=== PATIENT | male | born 1950 | race Caucasian/White ===

== ENCOUNTER 2019-06-23 17:09 | Inpatient (IN) | payer BC, OTHER ==
[~2019-06-23] VITALS: Ht 182.9 cm; Wt 101.4 kg
[2019-06-23] MEDS ORDERED: DEXTROSE 5% IV ONE (17:15)
[2019-06-23] MEDS ORDERED: EPINEPHRINE IV ONE (17:15)
--- NOTE | 2019-06-23 17:24 | NUR ---
business systems lead: MD Asif has updated pt's family on pt status.
[2019-06-23] MEDS ORDERED: NOREPINEPHRINE 1 MG/ML, 4ML ONE (18:00)
[2019-06-23] MEDS ORDERED: SODIUM CHLORIDE 0.9%, 250ML ONE (18:00)
[2019-06-23] MEDS ORDERED: EPINEPHRINE 4 MG in SODIUM CHLORIDE 0.9% 246 ML IV PRN (18:00)
[2019-06-23] MEDS ORDERED: PROPOFOL 100 ML IV ONE (18:08)
--- NOTE | 2019-06-23 18:09 | NUR ---
Gabbi to use central line per dr Asif
[2019-06-23] MEDS ORDERED: MIDAZOLAM 1 MG/ML, 2ML IVPush STA (18:17)
[2019-06-23] MEDS ORDERED: SODIUM BICARB 8.4%, 50ML SYRINGE ONE (18:20)
[2019-06-23] MEDS ORDERED: ATROPINE SYRINGE 0.1 MG/ML, 10ML ONE (18:20)
[2019-06-23] MEDS ORDERED: CODE BLUE RESPONSE XX ONE (18:20)
[2019-06-23] MEDS ORDERED: EPINEPHRINE SYRINGE 0.1 MG/ML, 10ML ONE (18:20)
[2019-06-23 18:23] LABS: ALANINE AMINOTRANSFERASE 79 U/L (12-78); ALBUMIN 3.3 g/dL (3.4-5.0); ANION GAP 19 mmol/L (5-15); CALCIUM 8.5 mg/dL (8.5-10.1); CHLORIDE 105 mmol/L (98-107); CREATININE 1.96 mg/dL (0.7-1.3)
--- NOTE | 2019-06-23 18:25 | NUR ---
DR OWEN IN ROOM
[2019-06-23 18:27] LABS: ALKALINE PHOSPHATASE 60 U/L (45-117); BILIRUBIN,TOTAL 0.7 mg/dL (0.2-1.0); TOTAL PROTEIN 6.4 g/dL (6.4-8.2); TROPONIN I < 0.015 ng/mL (0.000-0.045)
[2019-06-23 18:30] LABS: INTERNATIONAL NORMALIZED RATIO 1.33 (0.93-1.1); MEAN CORPUSCULAR HEMOGLOBIN 33.2 pg (27.5-34.5); MEAN CORPUSCULAR HGB CONC 31.4 g/dL (33.2-36.2); MEAN CORPUSCULAR VOLUME 105.7 fL (81-97); MEAN PLATELET VOLUME 10.3 fL (7.4-10.4); PLATELET COUNT 203 x10^3/uL (130-400); PROTHROMBIN TIME 13.8 Seconds (9.6-11.5); RED BLOOD COUNT 4.12 x10^6/uL (4.38-5.82); RED CELL DISTRIBUTION WIDTH 15.5 % (9.4-14.8)
[2019-06-23] MEDS: PROPOFOL 100 ML IV PRN ×2 (18:30→21:38)
[2019-06-23 18:32] LABS: MD YES
[2019-06-23 18:37] LABS: BAND#(MANUAL) 0.74 x10^3/uL; BANDS%(MANUAL) 7 % (0-7); EOS#(MANUAL) 0.21 x10^3/uL (0.0-0.4); EOS% (MANUAL) 2 % (1-7); LYMPH#(MANUAL) 3.36 x10^3/uL (1-3.4); LYMPHS% (MANUAL) 32 % (22-44); METAMYELOCYTES# (MANUAL) 0.11 x10^3/uL (0-0); METAMYELOCYTES% (MANUAL) 1 % (0-1); MONOS#(MANUAL) 0.63 x10^3/uL (0.3-2.7); MONOS% (MANUAL) 6 % (2-9); MYELOCYTES# (MANUAL) 0.11 x10^3/uL (0-0); MYELOCYTES% (MANUAL) 1 % (0-0); SEG#(MANUAL) 5.36 x10^3/uL (1.8-6.8); SEGS% (MANUAL) 51 % (42-75)
[2019-06-23] MEDS ORDERED: NOREPINEPHRINE 4 MG in SODIUM CHLORIDE 0.9% 246 ML IV PRN ×3 (18:37→23:30)
[2019-06-23] MEDS ORDERED: SODIUM PHOSPHATE 20 MMOL in SODIUM CHLORIDE 0.9% 250 ML IVPB PRN ×2 (18:37→20:50)
[2019-06-23] MEDS ORDERED: FENTANYL PF 2,500 MCG in SODIUM CHLORIDE 0.9% 200 ML IV PRN (18:37)
[2019-06-23 18:38] LABS: ANISOCYTOSIS 1+
[2019-06-23 18:39] LABS: POLYCHROMASIA 1+
[2019-06-23 18:40] LABS: PMNS WITH VACUOLES 1+; TOXIC GRAN 1+
[2019-06-23] MEDS ORDERED: MIDAZOLAM 1 MG/ML, 2ML IV STA (18:40)
[2019-06-23 18:41] LABS: <PLATELET ESTIMATE> ADEQUATE; LARGE PLATELETS 1+
[2019-06-23] MEDS ORDERED: VECURONIUM 10 MG IVPush PRN ×2 (19:00→21:00)
[2019-06-23] MEDS: KSCALE TO 4.0 IV SCH ×2 (19:00→21:52)
[2019-06-23] MEDS ORDERED: MAGNESIUM SULFATE 1 GM in SODIUM CHLORIDE 0.9% 50 ML IVPB PRN ×2 (19:00→21:00)
[2019-06-23] MEDS ORDERED: PHARMACY MAY ADJ FOR RENAL FX MC PRN (19:00)
[2019-06-23] MEDS ORDERED: ARTIFICIAL TEARS OINT 3.5 GM EACHEYE SCH ×2 (19:00→21:00)
[2019-06-23] MEDS ORDERED: CALCIUM CHLORIDE 13.6 MEQ in DEXTROSE 5% 100 ML IVPB PRN ×2 (19:00→21:00)
[2019-06-23] MEDS ORDERED: VECURONIUM 10 MG ONE (19:03)
--- NOTE | 2019-06-23 19:14 | NUR ---
DR FERRERA AT BEDSIDE. DOING OG.
--- NOTE | 2019-06-23 19:20 | NUR ---
Sissy sam in EDM - 06/23/[address] CHI ZARAGOZA OF OG. [employer] ADMINISTRATION SUPERVISOR, ANNA BROWN OF OG.
--- NOTE | 2019-06-23 19:21 | NUR ---
DR FERRERA AND CCU JOSELINE CASTILLO AWARE OF OG
--- NOTE | 2019-06-23 19:21 | NUR ---
FAMILY AT BEDSIDE TALKING WITH DR FERRERA
[2019-06-23 19:29] VITALS: BP 152/99
[2019-06-23] MEDS ORDERED: ATROPINE SYRINGE 0.1 MG/ML, 10ML IVPush ONE (19:30)
[2019-06-23] MEDS ORDERED: VECURONIUM 10 MG IVPush ONE (19:30)
--- NOTE | 2019-06-23 19:30 | NUR ---
BEDSIDE REPORT DONE WITH JOSELINE CASTILLO FROM CCU
[2019-06-23 19:43] LABS: HEMOGLOBIN A1C 5.6 % (4.2-6.3)
[2019-06-23] MEDS ORDERED: SODIUM BICARBONATE 8.4% 150 MEQ in DEXTROSE 5% 1,000 ML IV SCH (20:00)
[2019-06-23] MEDS: SODIUM CHLORIDE 0.9% 1,000 ML IV SCH ×2 (20:02→21:31)
--- NOTE | 2019-06-23 20:10 | NUR ---
LATE ENTRY: PT MANJINDER CARBAJAL FROM HOME. WITH WAS WITH PATIENT IN THEIR GARAGE. PT SAT DOWN ON STEPS AND THEM BECAME UNRESPONSIVE. CALLED EMS AND STARTED CPR. EMS GAVE 5 ROUNDS OF EPI. EMS REPORTS THEY HAS PULSES BACK BUT LOST THEM ON THE WAY TO THE HOSPITAL PT ARRIVED WITH CPR IN PROGRESS.
[2019-06-23] MEDS ORDERED: PROPOFOL 100 ML IV PRN (20:50)
[2019-06-23] MEDS ORDERED: FENTANYL PF 250 MCG in SODIUM CHLORIDE 0.9% 245 ML IV PRN (20:50)
[2019-06-23] MEDS ORDERED: BUSPIRONE 10 MG TABLET NG SCH (21:00)
[2019-06-23] MEDS ORDERED: KSCALE TO 4.0 IV SCH (21:00)
[2019-06-23 21:30] LABS: ALANINE AMINOTRANSFERASE 173 U/L (12-78); ALBUMIN 3.6 g/dL (3.4-5.0); ANION GAP 12 mmol/L (5-15); CALCIUM 8.1 mg/dL (8.5-10.1); CHLORIDE 108 mmol/L (98-107); CREATININE 2.17 mg/dL (0.7-1.3)
[2019-06-23] MEDS: BUSPIRONE 10 MG TABLET NG SCH (21:31)
[2019-06-23 21:32] LABS: ALKALINE PHOSPHATASE 86 U/L (45-117); BILIRUBIN,TOTAL 0.9 mg/dL (0.2-1.0); TOTAL PROTEIN 7.3 g/dL (6.4-8.2)
[2019-06-23] MEDS: FAMOTIDINE 20 MG/2 ML IVPush SCH (21:33)
[2019-06-23 21:50] LABS: TROPONIN I 0.245 ng/mL (0.000-0.045)
[2019-06-23] MEDS ORDERED: POTASSIUM CHLORIDE PMX 100 ML IV ONE (22:00)
[2019-06-23] MEDS ORDERED: CALCIUM CHLORIDE 13.6 MEQ in SODIUM CHLORIDE 0.9% 100 ML IV ONE (22:00)
[2019-06-23] MEDS: REGULAR INSULIN 62.5 UNITS in SODIUM CHLORIDE 0.9% 249.375 ML IV PRN (22:04)
[2019-06-23 23:48] LABS: MICROSCOPIC INDICATED
[2019-06-23 23:58] LABS: CULTURE INDICATED? NO
[2019-06-24] MEDS: KSCALE TO 4.0 IV SCH ×6 (00:58→22:00)
[2019-06-24] MEDS: PROPOFOL 100 ML IV PRN ×5 (01:37→22:01)
[2019-06-24] MEDS ORDERED: POTASSIUM CHLORIDE PMX 100 ML IV ONE ×5 (02:00→23:30)
[2019-06-24] MEDS: ARTIFICIAL TEARS OINT 3.5 GM EACHEYE SCH ×3 (03:06→19:00)
[2019-06-24] MEDS ORDERED: VECURONIUM 10 MG IVPush ONE ×2 (03:30→23:30)
[2019-06-24] MEDS: BUSPIRONE 10 MG TABLET NG SCH ×3 (05:18→21:38)
[2019-06-24 05:40] LABS: CHLORIDE 113 mmol/L (98-107)
[2019-06-24 05:44] LABS: MEAN CORPUSCULAR HEMOGLOBIN 32.6 pg (27.5-34.5); MEAN CORPUSCULAR HGB CONC 32.2 g/dL (33.2-36.2); MEAN CORPUSCULAR VOLUME 101.2 fL (81-97); MEAN PLATELET VOLUME 9.2 fL (7.4-10.4); PLATELET COUNT 219 x10^3/uL (130-400); RED BLOOD COUNT 4.45 x10^6/uL (4.38-5.82); RED CELL DISTRIBUTION WIDTH 15.1 % (9.4-14.8)
[2019-06-24 05:51] LABS: ALANINE AMINOTRANSFERASE 147 U/L (12-78); ALBUMIN 3.3 g/dL (3.4-5.0); ALKALINE PHOSPHATASE 66 U/L (45-117); BILIRUBIN,TOTAL 0.8 mg/dL (0.2-1.0); CALCIUM 8.6 mg/dL (8.5-10.1); CREATININE 1.94 mg/dL (0.7-1.3); TOTAL PROTEIN 6.7 g/dL (6.4-8.2); TROPONIN I 0.439 ng/mL (0.000-0.045)
[2019-06-24 06:05] LABS: MD YES
[2019-06-24 06:07] LABS: ANISOCYTOSIS 1+; BAND#(MANUAL) 2.82 x10^3/uL; BANDS%(MANUAL) 13 % (0-7); LYMPH#(MANUAL) 1.09 x10^3/uL (1-3.4); LYMPHS% (MANUAL) 5 % (22-44); MONOS#(MANUAL) 0.65 x10^3/uL (0.3-2.7); MONOS% (MANUAL) 3 % (2-9); SEG#(MANUAL) 17.14 x10^3/uL (1.8-6.8); SEGS% (MANUAL) 79 % (42-75)
[2019-06-24 06:08] LABS: <PLATELET ESTIMATE> ADEQUATE; <PLT MORPHOLOGY> NORMAL PLT MORPH
[2019-06-24 06:14] LABS: ANION GAP 9 mmol/L (5-15)
[2019-06-24] MEDS ORDERED: ALBUMIN HUMAN 25% 200 ML IV ONE (08:30)
[2019-06-24] MEDS ORDERED: D5%-0.45% NACL 1,000 ML IV SCH (08:30)
[2019-06-24] MEDS: FAMOTIDINE 20 MG/2 ML IVPush SCH ×2 (09:43→21:37)
[2019-06-24] MEDS: PIPERACILLIN/TAZO/PMX 3.375GM 50 ML IV SCH ×3 (10:58→22:34)
[2019-06-24] MEDS ORDERED: SODIUM BICARB 8.4%, 50ML SYRINGE ONE (12:43)
[2019-06-24] MEDS ORDERED: SODIUM BICARB 8.4%, 50ML SYRINGE IVPush ONE (13:00)
[2019-06-24] MEDS: SODIUM BICARBONATE 8.4% 150 MEQ in DEXTROSE 5% 1,000 ML IV SCH (13:39)
[2019-06-24] MEDS ORDERED: FUROSEMIDE 20 MG/2 ML IV ONE (14:00)
[2019-06-24] MEDS: REGULAR INSULIN 62.5 UNITS in SODIUM CHLORIDE 0.9% 249.375 ML IV PRN ×2 (14:05→23:28)
[2019-06-24] MEDS: NOREPINEPHRINE 4 MG in SODIUM CHLORIDE 0.9% 246 ML IV PRN (20:32)
[2019-06-24] MEDS ORDERED: SODIUM BICARBONATE 8.4% 150 MEQ in DEXTROSE 5% 1,000 ML IV SCH (21:38)
[2019-06-25] MEDS: SODIUM BICARBONATE 8.4% 150 MEQ in DEXTROSE 5% 1,000 ML IV SCH (01:03)
[2019-06-25] MEDS: PROPOFOL 100 ML IV PRN ×3 (01:31→11:15)
[2019-06-25] MEDS: KSCALE TO 4.0 IV SCH ×6 (02:00→22:00)
[2019-06-25] MEDS: ARTIFICIAL TEARS OINT 3.5 GM EACHEYE SCH ×3 (03:00→19:00)
[2019-06-25] MEDS ORDERED: POTASSIUM CHLORIDE PMX 100 ML IV ONE ×2 (03:30→07:00)
[2019-06-25] MEDS: PIPERACILLIN/TAZO/PMX 3.375GM 50 ML IV SCH ×4 (04:36→23:06)
[2019-06-25] MEDS: BUSPIRONE 10 MG TABLET NG SCH (05:47)
[2019-06-25 06:04] LABS: ANION GAP 12 mmol/L (5-15); CALCIUM 7.8 mg/dL (8.5-10.1); CHLORIDE 108 mmol/L (98-107); CREATININE 1.76 mg/dL (0.7-1.3)
[2019-06-25 06:06] LABS: MEAN CORPUSCULAR HEMOGLOBIN 32.8 pg (27.5-34.5); MEAN CORPUSCULAR HGB CONC 32.6 g/dL (33.2-36.2); MEAN CORPUSCULAR VOLUME 100.5 fL (81-97); MEAN PLATELET VOLUME 9.1 fL (7.4-10.4); PLATELET COUNT 192 x10^3/uL (130-400); RED BLOOD COUNT 3.85 x10^6/uL (4.38-5.82); RED CELL DISTRIBUTION WIDTH 14.6 % (9.4-14.8)
[2019-06-25 06:22] LABS: MD YES
[2019-06-25 06:23] LABS: ANISOCYTOSIS 1+; BAND#(MANUAL) 1.58 x10^3/uL; BANDS%(MANUAL) 9 % (0-7); LYMPH#(MANUAL) 0.53 x10^3/uL (1-3.4); LYMPHS% (MANUAL) 3 % (22-44); METAMYELOCYTES# (MANUAL) 0.18 x10^3/uL (0-0); METAMYELOCYTES% (MANUAL) 1 % (0-1); MONOS#(MANUAL) 0.88 x10^3/uL (0.3-2.7); MONOS% (MANUAL) 5 % (2-9); SEG#(MANUAL) 14.43 x10^3/uL (1.8-6.8); SEGS% (MANUAL) 82 % (42-75)
[2019-06-25 06:24] LABS: <PLATELET ESTIMATE> ADEQUATE; <PLT MORPHOLOGY> NORMAL PLT MORPH; PMNS WITH VACUOLES 1+
[2019-06-25 06:25] LABS: POLYCHROMASIA 1+
[2019-06-25] MEDS: NOREPINEPHRINE 4 MG in SODIUM CHLORIDE 0.9% 246 ML IV PRN (07:22)
[2019-06-25] MEDS ORDERED: DEXTROSE 50%, 50ML SYRINGE IVPush STA (10:07)
[2019-06-25] MEDS: POTASSIUM CHLORIDE 10% 40 MEQ/30 ML UDC PO SCH ×3 (10:10→21:28)
[2019-06-25] MEDS: FAMOTIDINE 20 MG/2 ML IVPush SCH ×2 (10:10→21:28)
[2019-06-25] MEDS ORDERED: DEXTROSE 50%, 50ML SYRINGE IVPush ONE (10:30)
[2019-06-25] MEDS: INSULIN LISPRO 100 UNITS/ML, PEN SQ-INSULIN SCH ×3 (12:00→21:00)
[2019-06-25] MEDS ORDERED: ACETAMINOPHEN 325 MG TABLET ONE (15:18)
[2019-06-25] MEDS: ACETAMINOPHEN 325 MG TABLET PO PRN (15:20)
[2019-06-25] MEDS ORDERED: MAGNESIUM SULFATE 1 GM in SODIUM CHLORIDE 0.9% 50 ML IV ONE (15:30)
[2019-06-25] MEDS ORDERED: FENTANYL PF 100 MCG/2ML IVPush PRN (16:30)
[2019-06-26] MEDS: KSCALE TO 4.0 IV SCH ×2 (02:00→06:00)
[2019-06-26] MEDS: ARTIFICIAL TEARS OINT 3.5 GM EACHEYE SCH ×3 (03:00→17:07)
[2019-06-26] MEDS: PIPERACILLIN/TAZO/PMX 3.375GM 50 ML IV SCH ×4 (04:54→22:39)
[2019-06-26] MEDS: PROPOFOL 100 ML IV PRN (04:55)
[2019-06-26 05:09] LABS: MEAN CORPUSCULAR HEMOGLOBIN 32.4 pg (27.5-34.5); MEAN CORPUSCULAR HGB CONC 32.9 g/dL (33.2-36.2); MEAN CORPUSCULAR VOLUME 98.6 fL (81-97); MEAN PLATELET VOLUME 9.4 fL (7.4-10.4); PLATELET COUNT 166 x10^3/uL (130-400); RED CELL DISTRIBUTION WIDTH 15.2 % (9.4-14.8)
[2019-06-26 05:15] LABS: ALBUMIN 2.7 g/dL (3.4-5.0); ANION GAP 6 mmol/L (5-15); CALCIUM 7.5 mg/dL (8.5-10.1); CHLORIDE 108 mmol/L (98-107)
[2019-06-26 05:19] LABS: ALANINE AMINOTRANSFERASE 78 U/L (12-78); ALKALINE PHOSPHATASE 45 U/L (45-117); BILIRUBIN,TOTAL 0.7 mg/dL (0.2-1.0); TOTAL PROTEIN 5.7 g/dL (6.4-8.2)
[2019-06-26 05:59] LABS: BASOPHILS % (AUTO) 0 % (0-1); EOSINOPHILS # (AUTO) 0.02 x10^3/uL (0-0.4); EOSINOPHILS % (AUTO) 0 % (1-7); LYMPHOCYTES % (AUTO) 5 % (22-44); MD SCAN; MONOCYTES # (AUTO) 0.63 x10^3/uL (0.2-0.8); MONOCYTES % (AUTO) 5 % (2-9); NEUTROPHILS # (AUTO) 11.37 x10^3/uL (1.8-6.8); NEUTROPHILS % (AUTO) 90 % (42-75)
[2019-06-26] MEDS: INSULIN LISPRO 100 UNITS/ML, PEN SQ-INSULIN SCH ×4 (06:45→20:45)
[2019-06-26] MEDS ORDERED: NOREPINEPHRINE 4 MG in SODIUM CHLORIDE 0.9% 246 ML IV PRN (07:00)
[2019-06-26] MEDS ORDERED: hydrALAzine 20 MG/ML, 1ML IV PRN (09:00)
[2019-06-26] MEDS: FAMOTIDINE 20 MG/2 ML IVPush SCH ×2 (09:22→20:45)
--- NOTE | 2019-06-26 11:04 | NUR ---
TF GOAL: w/ propofol: PROMOTE @ 70 ml/hr off propofol: 80ml/hr
[2019-06-27] MEDS: ACETAMINOPHEN 325 MG TABLET PO PRN ×2 (02:59→14:05)
[2019-06-27] MEDS: ARTIFICIAL TEARS OINT 3.5 GM EACHEYE SCH ×2 (03:00→11:00)
[2019-06-27] MEDS: PIPERACILLIN/TAZO/PMX 3.375GM 50 ML IV SCH ×3 (04:41→16:30)
[2019-06-27 04:44] LABS: MEAN CORPUSCULAR HEMOGLOBIN 32.3 pg (27.5-34.5); MEAN CORPUSCULAR HGB CONC 32.9 g/dL (33.2-36.2); MEAN CORPUSCULAR VOLUME 98.2 fL (81-97); MEAN PLATELET VOLUME 9.2 fL (7.4-10.4); PLATELET COUNT 150 x10^3/uL (130-400); RED CELL DISTRIBUTION WIDTH 14.5 % (9.4-14.8)
[2019-06-27 04:50] LABS: ALANINE AMINOTRANSFERASE 56 U/L (12-78); ALBUMIN 2.8 g/dL (3.4-5.0); ANION GAP 8 mmol/L (5-15); CALCIUM 8.2 mg/dL (8.5-10.1); CHLORIDE 110 mmol/L (98-107); CREATININE 1.89 mg/dL (0.7-1.3)
[2019-06-27 04:52] LABS: ALKALINE PHOSPHATASE 47 U/L (45-117); BILIRUBIN,TOTAL 1.5 mg/dL (0.2-1.0); TOTAL PROTEIN 6.3 g/dL (6.4-8.2)
[2019-06-27 05:53] LABS: BASOPHILS # (AUTO) 0.01 x10^3/uL (0-0.1); BASOPHILS % (AUTO) 0 % (0-1); EOSINOPHILS # (AUTO) 0.02 x10^3/uL (0-0.4); EOSINOPHILS % (AUTO) 0 % (1-7); LYMPHOCYTES # (AUTO) 0.72 x10^3/uL (1-3.4); LYMPHOCYTES % (AUTO) 6 % (22-44); MD SCAN; MONOCYTES # (AUTO) 0.75 x10^3/uL (0.2-0.8); MONOCYTES % (AUTO) 6 % (2-9); NEUTROPHILS % (AUTO) 88 % (42-75)
[2019-06-27] MEDS: INSULIN LISPRO 100 UNITS/ML, PEN SQ-INSULIN SCH ×3 (06:04→16:00)
[2019-06-27] MEDS: PROPOFOL 100 ML IV PRN (08:40)
[2019-06-27] MEDS: FAMOTIDINE 20 MG/2 ML IVPush SCH (09:00)
[2019-06-27] MEDS ORDERED: GADOTERATE 10 MMOL/20 ML SYR ONE (09:33)
[2019-06-27] MEDS ORDERED: LORazepam 2 MG/ML, 1ML IV PRN (17:30)
[2019-06-27] MEDS ORDERED: ATROPINE OPHTH SOLN 1%, 2ML PO PRN (17:30)
[2019-06-27] MEDS ORDERED: morphine SULFATE 10 MG/ML, 1ML IV ONE (17:30)
[2019-06-27] MEDS ORDERED: LORazepam 2 MG/ML, 1ML IV ONE (17:30)
[2019-06-27] MEDS ORDERED: MORPHINE SULFATE 4 MG/ML, 1ML IV PRN (17:30)
[2019-06-28] MEDS ORDERED: FAMOTIDINE 20 MG/2 ML IVPush SCH (09:00)
== END 2019-06-27 22:29 | disposition expired | DRG 207 ==
LOC: ED 18:13 → EDIP 18:14 → ED 18:44 → CCU 19:42
PROVIDERS: ADMIT Family Medicine; ATTEND Family Medicine
PROC: 5A1955Z Respiratory Ventilation, Greater than 96 Consecutive Hours (ICD-10-PCS; principal; 2019-06-23)
PROC: 0T9B70Z Drainage of Bladder with Drainage Device, Via Natural or Artificial Opening (ICD-10-PCS; 2019-06-23)
PROC: 0BH17EZ Insertion of Endotracheal Airway into Trachea, Via Natural or Artificial Opening (ICD-10-PCS; 2019-06-23)
PROC: 02HV33Z Insertion of Infusion Device into Superior Vena Cava, Percutaneous Approach (ICD-10-PCS; 2019-06-23)
PROC: 5A12012 Performance of Cardiac Output, Single, Manual (ICD-10-PCS; 2019-06-23)
DX: J96.01 Acute respiratory failure with hypoxia (principal); D68.69 Other thrombophilia; E87.2 Acidosis; G93.1 Anoxic brain damage, not elsewhere classified; N17.9 Acute kidney failure, unspecified; Z99.11 Dependence on respirator [ventilator] status; I48.20 Chronic atrial fibrillation, unspecified; R57.0 Cardiogenic shock; E78.5 Hyperlipidemia, unspecified; Y90.9 Presence of alcohol in blood, level not specified; F10.10 Alcohol abuse, uncomplicated; I10 Essential (primary) hypertension; Z79.01 Long term (current) use of anticoagulants; Z87.891 Personal history of nicotine dependence; Z95.3 Presence of xenogenic heart valve; G25.3 Myoclonus; I49.3 Ventricular premature depolarization
CPT/HCPCS: 31500; 36556; 36600; 96374; 96375; 99291; 99292; J3490; 70553; 71045; 80048; 80053; 81001; 82330; 82533; 82803; 82962; 83036; 83605; 83735; 83880; 84100; 84132; 84478; 84484; 85025; 85610; 85730; 87040; 87070; 87081; 87086; 87205; 92950; 93005; 94002; 94003; G0378; J0461; J1815; J2250; J2543; J2704; J3010; J3475; J3480; J7060; J7070; P9047; A9575; J0171; J0360; J1940; J2060; J2270; J7050